=== PATIENT | male | born 1980 | race Caucasian/White ===

== ENCOUNTER 2017-03-03 04:43 | Inpatient (IN) | payer OTHER ==
[~2017-03-03] VITALS: Ht 188 cm; Wt 102.3 kg
--- NOTE | 2017-03-03 11:04 | NUR ---
1030 - PATIENT TRANSFERRED TO ICU/MD ORDER. REPORT GIVEN TO JOSE CALDERON RN.
--- NOTE | 2017-03-03 18:34 | NUR ---
1800- AT BEDSIDE WITH PATIENT. GIRLFRIEND AT BEDSIDE WELL. PATIENT GIVEN ZOFRAN AND TORADOL FOR PAIN AND NAUSEA. SHORTLY AFTER PATIENT GRABBED CHEST THOUGH CHEST WAS HURTING. PATIENT ASKED YES NO QUESTIONS. PATIENT UNABLE TO RESPOND. PATIENTS CHEST BOWED OUT AND BACK ARCHED. PATIENT BEGAN STARING OUT INTO SPACE. PATIENT THEN WENT UNRESPONSIVE. STERNAL RUB APPLIED. NO RESPONSE. HR NSR IN THE 60'S BP 159/90. NO CHANGE IN VITAL SIGNS. DR CAMERON AT BEDSIDE WITHIN A FEW MINUTES, DUE TO ROUNDING ON HIS PATIENTS. 1801-PATIENT AWOKE ABRUPTLY AND HAD A FEARFUL LOOK AND HIT [facility] WITH RIGHT HAND. PATIENT GIRLFRIEND QUICKLY CALMED PATIENT DOWN AND PATIENT REORIENTED. PATIENT STABLE. PATIENT ASSESSMENT UNCHANGED. VITAL SIGNS STABLE. NO S/S OF DISTRESS. DR FINLEY CALLED. SEE ORDERS FOR DETAILS.
--- NOTE | 2017-03-03 23:55 | NUR ---
1954 PTS FRIEND CALLED FOR ME TO COME INTO THE ROOM THAT THE PT WAS HAVING A SEIZURE. WHEN I ENTERED THE ROOM PT HAD BACK ARCHED AND FIST AGAINST BEDRAILS. HE WAS NOT BREATHING AND HR WAS 49. FRIEND WAS RUBBING COLD CLOTH TO FACE OF PT AND TALKING TO HIM. SHE TOLD ME TO STEP AWAY FROM THE PT BECAUSE WHEN HE "COMES OUT OF THESE SEIZURES HE MAY HIT YOU". I STEPPED AWAY FROM THE BED AND THEN THE PT STOPPED WITH THE STIFFNESS OF BODY AND HR STARTED TO CLIMB BACK INTO THE 80'S/ MIN. BP WAS NORMAL AT 143/80. AT THIS TIME PT STARTED TALKING AND TELLING ME HE WAS IN PAIN AND NEED SOME "METHADONE". THAT THE MED WE WERE GIVING HIM WAS NOT WORKING. 2029 ATIVAN GIVEN AFTER TALKING LONG PEROID OF TIME TO PT ABOUT TAKING THE MED TO HELP HIM. HE STATED "IT WILL NOT HELP ME AND I WILL FIGHT IT SO i DON'T SLEEP", STATED "YOU ALL ARE LIARS AND JUST WANT ME TO SLEEP SO YOU CAN SIT OUT THERE, [facility] I EXPLAINED TO HIM I HAD NOT LIED TO HIM ABOUT ANYTHING. UNABLE TO REASON WITH PT AT THIS TIME. 2039 DR FINLEY NOTIFIED OF INCIDENT AND SINCE HE WAS ABLE TO TALK TO ME AND ASK FOR METHADONE THIS DOES NOT APPEAR TO BE SEIZURE. DR. FINLEY STATED HE WOULD NOT START PT ON METHADONE AND TO CONT TX ORDERED. 2099 GIRL FRIEND OF PT REQUESTED TO TALK TO DR. FINLEY AT PTS REQUEST AND ASK FOR SOME DIFFERENT MED FOR PT. DR. FINLEY CALLED AND HE TALKED WITH HER AND EXPLAINED WE WERE GOING TO CONT SAME TX AT THIS TIME. 2114 PT VERY UPSET AND STATES HE WILL SIGN AMA AND GET THE DRUGS HE NEEDS. FRIEND LEFT TO GET SON SHE STATED. PT REQUEST CURTAIN BE PULLED AND DOOR SHUT. FRIEND STATED HE IS JUST MAD AND WANTS TO BE LEFT ALONE. 2199 PT SLEEPING MOSTLY BUT STILL TURNING FREQ IN BED WHILE SLEEPING. HAVING PEROIDS OF BRADYCARDIA THAT ONLY LAST A FEW SECONDS. SEE CHART FOR COPIES OF BRADYCARDIA. PT IS SLEEPING DURING THIS TIME. 2299 PT IS SLEEPING MOSTLY AT THIS TIME.
--- NOTE | 2017-03-04 04:42 | NUR ---
0415 WHEN ASK PT TO ALLOW ME TO OBTAIN BP HE TOOK BLANKET AND COVERED HIS HEAD. REFUSED TO ALLOW ME TO GET V.S. AT THIS TIME.
--- NOTE | 2017-03-04 08:00 | NUR ---
DR. ECHOLS NOTIFIED OF CARDIOLOGY CONSULT NEED FOR BRADYCARDIA. STATED THAT HE WOULD BE HERE.
--- NOTE | 2017-03-04 09:30 | NUR ---
DR. ECHOLS AT BEDSIDE AT THIS TIME.
--- NOTE | 2017-03-04 13:30 | NUR ---
PATIENT CALLED ME INTO HIS ROOM AND STATED THAT HE WANTED TO LEAVE AMA THAT HE HAD A RIDE OUTSIDE WAITING ON HIM. EARLIER THIS MORNING HE DID THREATEN TO LEAVE AMA WHEN DR. FISCHER WAS AT HIS BEDSIDE AND HAD TOLD HIM THAT HE COULD LEAVE ANYTIME THAT HE WANTED, HOWEVER HE WAS HERE TO BE ABLE TO GET OFF DRUGS AND THAT WAS WHAT WE WERE DOING AND IF HE REALLY WANTED TO DO THAT, WE WOULD HELP HIM. THEN, DR. FISCHER TOLD ME THAT IF HE WANTED TO LEAVE AMA AGAIN TO GO ON AND LET HIM GO. SO, I GOT MY AMA CONSENT SIGNED BY THE PATIENT, TOOK OUT HIS IV AND GOT A FINAL RHYTHM STRIP ON HIM. HE EXITED THE ICU AMBULATORY IN NO ACUTE DISTRESS. HE DID SAY THAT THE REASON HE WAS LEAVING WAS THAT WE WERE NOT GIVING HIM THE METHADONE THAT HE NEEDED TO GET OVER HIS DRUG ADDICTIONS. WHEN I TRIED TO EXPLAIN THAT METHADONE WAS NOT THE ONLY MEDICATION TO USE TO GET OVER DRUG ADDICTIONS, HE DID NOT WANT TO LISTEN AND THAT IS WHEN HE LEFT OUT THE ICU DOORS. DR. FISCHER WAS NOTIFIED THAT THE PATIENT DID LEAVE AMA.
== END 2017-03-04 13:30 | disposition left against medical advice (07) | DRG 313 ==
LOC: ER 04:43 → ICU 07:10 → MED 07:10 → ICU 10:50
PROVIDERS: ADMIT Internal Medicine
DX: R07.2 Precordial pain (principal); F11.23 Opioid dependence with withdrawal; F15.23 Other stimulant dependence with withdrawal; I49.8 Other specified cardiac arrhythmias; R55 Syncope and collapse; F17.210 Nicotine dependence, cigarettes, uncomplicated; B19.20 Unspecified viral hepatitis C without hepatic coma; I11.9 Hypertensive heart disease without heart failure
CPT/HCPCS: 36415; 93306; 96360; J1650; J1885; J2060; J7030